=== PATIENT | male | born 1940 | race Caucasian/White ===

== ENCOUNTER 2017-11-11 18:24 | Emergency (ER) | payer MEDICARE, OTHER ==
--- NOTE | 2017-11-11 18:38 | ER Report ---
History and Physical Time Seen By MD: 18:38 HPI/ROS Chief Complaint: "tired, shortness of breath, and headache yesterday" HPI: 77-year-old male presents to the emergency department with his . The patient is the primary historian. He states that he and his drove from [place], [place] and arrived in near [facility] last night where they were attending a meditation retreat. Reports having shortness of breath last night and woke with a headache. States, the shortness of breath improved when they drove to [place], [place] from the [facility] area (approximately 1000ft decreased elevation). Reports the headache spontaneously resolved as well. Denies a history of headaches and reports the headache was not the worst headache he as ever had in his life. He does have a significant cardiac history with six stents in his heart. The further reports recent stress in his life and some general fatigue from the stress and long drive. The patient and patient 's would appreciate ruling out the potential for any cardiac complication. The patient and patient's state they have a long road trip back to [facility] and the route may not have accessible health care so they would like to make sure his heart is okay before they begin their journey. ROS: Constitutional: denies fevers, chills, or night sweats, reports fatigue and stress HEENT: reports headache, denies congestion Respiratory: reports shortness of breath, denies difficulty breathing CV: denies chest pain GI: denies nausea or vomiting, denies constipation or diarrhea : denies changes in urination Musculoskeletal: reports ability to move all extremities Allergies: Coded Allergies: Fktjhuh-Ptw-Lnq Reductase Inhibitor (Verified Adverse Reaction, Unknown, "DONT NATHENERATE WELL", 11/11/17) Home Meds Reported Medications Propranolol Hcl (PROPRANOLOL HCL) 10 Mg Tablet, 10 MG PO PRN 11/11/17 Primidone (PRIMIDONE) 50 Mg Tab, 12.5 MG PO QDAY, TAB 11/11/17 Evolocumab (Repatha Syringe) 140 Mg/Ml Syringe, 1 SYR INJ Q2WK 11/11/17 Aspirin (ASPIR 81) 81 Mg Tablet.dr, 162 MG PO QDAY, TAB 11/11/17 Clopidogrel Bisulfate (CLOPIDOGREL) 75 Mg Tablet, 1 TAB PO QDAY, TAB 11/11/17 Metoprolol Succinate (METOPROLOL SUCCINATE) 25 Mg Tab.er.24h, 1 TAB PO QDAY, TAB 11/11/17 Past Medical/Surgical History Patient has a past medical history of CA, hypertension, hyperlipidemia, pneumonia, prostate problems, fractures, vision problems, hypothyroidism, anticoagulated using aspirin and Plavix. Patient has a surgical history of cardiac stents 6. Reviewed Nurses Notes: Yes Constitutional Vital Sign - Last 24 Hours 11/11/17 11/11/17 11/11/17 11/11/17 18:36 18:45 18:45 18:54 Temp 98.2 Pulse 57 62 Resp 22 17 B/P (MAP) 151/92 (111) 141/88 (105) 151/92 Pulse Ox 90 93 O2 Delivery Room Air 11/11/17 11/11/17 11/11/17 11/11/17 19:00 19:09 19:15 19:24 Pulse 58 57 Resp 10 14 B/P (MAP) 148/90 (109) 141/94 (110) Pulse Ox 92 11/11/17 11/11/17 11/11/17 11/11/17 19:30 19:39 19:45 19:54 Pulse 55 53 Resp 9 6 B/P (MAP) 153/92 (112) 145/86 (105) Pulse Ox 93 90 11/11/17 11/11/17 11/11/17 19:59 20:00 20:14 Pulse 54 58 Resp 13 12 B/P (MAP) 156/91 (112) Pulse Ox 95 91 Intake and Output 11/11/17 11/11/17 11/12/17 15:00 23:00 07:00 Intake Total 1000 ml Balance 1000 ml Physical Exam Physical Examination: General: 77-year-old male in no acute distress HEENT: normocephalic, atraumatic, cranial nerves grossly intact Respiratory: BL equal respiratory excursion, CTA BL CV: clear S1 S2, no murmur GI: normoactive BS x 4, nondistended, nontender Musculoskeletal: moves all extremities, no weakness, 5/5 strength of the upper and lower extremities, 5/5 tar heater strength Differential Diagnoses: altitude sickness, dehydration, cardiac ischemia Medical Decision Making Data Points Result Diagram: 11/11/17193811/11/171938 Laboratory Hematology Test 7/14/18 19:39 Red Blood Count 4.41 M/uL (4.00-5.60) Mean Corpuscular Volume 97.6 fL (80.0-96.0) Mean Corpuscular Hemoglobin 34.7 pg (26.0-33.0) Mean Corpuscular Hemoglobin Concent 35.5 g/dL (32.0-36.0) Red Cell Distribution Width 13.4 % (11.5-14.5) Mean Platelet Volume 8.3 fL (7.2-11.1) Neutrophils (%) (Auto) 42.0 % (39.4-72.5) Lymphocytes (%) (Auto) 38.0 % (17.6-49.6) Monocytes (%) (Auto) 14.7 % (4.1-12.4) Eosinophils (%) (Auto) 4.7 % (0.4-6.7) Basophils (%) (Auto) 0.6 % (0.3-1.4) Nucleated RBC Relative Count (auto) 0.1 /100WBC Neutrophils # (Auto) 2.5 K/uL (2.0-7.4) Lymphocytes # (Auto) 2.3 K/uL (1.3-3.6) Monocytes # (Auto) 0.9 K/uL (0.3-1.0) Eosinophils # (Auto) 0.3 K/uL (0.0-0.5) Basophils # (Auto) 0.0 K/uL (0.0-0.1) Nucleated RBC Absolute Count (auto) 0.01 K/uL Sodium Level 139 mmol/L (137-145) Potassium Level 3.9 mmol/L (3.5-5.0) Chloride Level 102 mmol/L (98-107) Carbon Dioxide Level 28 mmol/L (22-30) Blood Urea Nitrogen 19 mg/dl (9-21) Creatinine 1.00 mg/dl (0.66-1.25) Glomerular Filtration Rate Calc > 60.0 Random Glucose 91 mg/dl (75-110) Calcium Level 9.1 mg/dl (8.4-10.2) Total Bilirubin 0.9 mg/dl (0.2-1.3) Aspartate Amino Transf (AST/SGOT) 25 U/L (0-35) Alanine Aminotransferase (ALT/SGPT) 22 U/L (0-56) Alkaline Phosphatase 70 U/L (0-126) Troponin I < 0.012 ng/ml Total Protein 7.1 g/dl (6.3-8.2) Albumin 4.0 g/dl (3.5-5.0) Chemistry Test 11/11/17 19:39 White Blood Count 6.0 k/uL (4.5-11.0) Red Blood Count 4.41 M/uL (4.00-5.60) Hemoglobin 15.3 g/dL (14.0-18.0) Hematocrit 43.1 % (42.0-52.0) Mean Corpuscular Volume 97.6 fL (80.0-96.0) Mean Corpuscular Hemoglobin 34.7 pg (26.0-33.0) Mean Corpuscular Hemoglobin Concent 35.5 g/dL (32.0-36.0) Red Cell Distribution Width 13.4 % (11.5-14.5) Platelet Count 198 K/uL (150-450) Mean Platelet Volume 8.3 fL (7.2-11.1) Neutrophils (%) (Auto) 42.0 % (39.4-72.5) Lymphocytes (%) (Auto) 38.0 % (17.6-49.6) Monocytes (%) (Auto) 14.7 % (4.1-12.4) Eosinophils (%) (Auto) 4.7 % (0.4-6.7) Basophils (%) (Auto) 0.6 % (0.3-1.4) Nucleated RBC Relative Count (auto) 0.1 /100WBC Neutrophils # (Auto) 2.5 K/uL (2.0-7.4) Lymphocytes # (Auto) 2.3 K/uL (1.3-3.6) Monocytes # (Auto) 0.9 K/uL (0.3-1.0) Eosinophils # (Auto) 0.3 K/uL (0.0-0.5) Basophils # (Auto) 0.0 K/uL (0.0-0.1) Nucleated RBC Absolute Count (auto) 0.01 K/uL Glomerular Filtration Rate Calc > 60.0 Calcium Level 9.1 mg/dl (8.4-10.2) Total Bilirubin 0.9 mg/dl (0.2-1.3) Aspartate Amino Transf (AST/SGOT) 25 U/L (0-35) Alanine Aminotransferase (ALT/SGPT) 22 U/L (0-56) Alkaline Phosphatase 70 U/L (0-126) Troponin I < 0.012 ng/ml Total Protein 7.1 g/dl (6.3-8.2) Albumin 4.0 g/dl (3.5-5.0) EKG/Imaging EKG Interpretation 12 lead EKG: Rhythm: Sinus bradycardia with a first-degree AV block with a ventricular rate of 58 bpm. Garner: normal QRS: normal ST segments: normal ED Course/Re-evaluation ED Course Patient was admitted in exam room, history and physical were obtained. Differential diagnoses were considered. On examination lungs are clear, heart is regular, abdomen soft nontender. A CBC, CMP, troponin, EKG were done. Patient had a sinus bradycardia with a first-degree AV block. Lab work were completely unremarkable. Patient had a negative troponin. We discussed the findings with patient and his . They state that they're ready to go home at this time. I believe that with the patient feeling better after coming down to a lower altitude patient was likely dealing with mountain sickness. I encouraged him to increase fluid intake, get plenty of rest and drive to the lower altitude. They state they're planning on heading back to [place] starting tomorrow. We will go ahead and discharge patient home at this time. Decision to Disposition Date: Nov 11, 2017 Decision to Disposition Time: 20:22 Depart Departure Latest Vital Signs Vital Signs Date Time Temp Pulse Resp B/P (MAP) Pulse Ox O2 Delivery O2 Flow Rate FiO2 11/11/17 20:14 58 12 91 11/11/17 20:00 156/91 (112) 11/11/17 18:45 98.2 Room Air Impression: Primary Impression: Mountain sickness Condition: Improved Disposition: HOME OR SELF-CARE Patient Instructions: Mountain Sickness (ED) Additional Instructions: Increase fluid intake. Get plenty of rest. Follow up with your primary care provider in the next week. Follow up in an ER if condition worsens. Continue with current medications. Limit activity by how you are feeling. Problem Qualifiers Primary Impression: Mountain sickness Encounter type: initial encounter Qualified Codes: T70.29XA - Other effects of high altitude, initial encounter ALEJO CHA Nov 11, 2017 18:38
[2017-11-11] MEDS ORDERED: NS(*) 0.9% 1000 ML BAG 1,000 ML IV ONE (19:15)
[2017-11-11 19:50] LABS: PLATELET COUNT, AUTOMATED 198 K/uL (150-450)
[2017-11-11 20:00] VITALS: BP 156/91
[2017-11-11] MEDS ORDERED: METO25TA23 PO (20:00)
[2017-11-11] MEDS ORDERED: CLOP75TA PO (20:01)
[2017-11-11] MEDS ORDERED: ASPI-1471 PO (20:01)
[2017-11-11] MEDS ORDERED: EVOL140S INJ (20:02)
[2017-11-11] MEDS ORDERED: PRIM50TA PO (20:03)
[2017-11-11] MEDS ORDERED: PROP10TA58 PO (20:04)
--- NOTE | 2017-11-11 22:50 | EKG ---
FACILITY: [facility] PATIENT NAME: LEXIE PRESTON : [id number] MR: [id number] V: [id number] EXAM DATE: ORDERING PHYSICIAN: ALEJO CHA TECHNOLOGIST: SYLVESTER Test Reason : DYSPNEA Blood Pressure : / mmHG Vent. Rate : 058 BPM Atrial Rate : 058 BPM P-R Int : 224 ms QRS Dur : 092 ms QT Int : 420 ms P-R-T Axes : 059 004 055 degrees QTc Int : 412 ms Sinus bradycardia with 1st degree AV block Otherwise normal ECG No previous ECGs available Confirmed by SAL TORRES ([id number] on 11/12/2017 6:51:34 AM Referred By: Confirmed By:SAL TORRES
== END 2017-11-11 20:41 | disposition home or self-care (01) ==
LOC: ER 18:52
DX: T70.20XA Unspecified effects of high altitude, initial encounter (principal); W94.11XA Exposure to residence or prolonged visit at high altitude, initial encounter; Y92.828 Other wilderness area as the place of occurrence of the external cause; Y99.8 Other external cause status
CPT/HCPCS: 84484; 85025; 93005; 96360; 99283; J7030; 82040; 82247; 82310; 82374; 82435; 82565; 82947; 84075; 84132; 84155; 84295; 84450; 84460; 84520